=== PATIENT | female | born 1985 | race Caucasian/White ===

== ENCOUNTER 2017-11-15 18:15 | Emergency (ER) | payer MEDICAID, OTHER ==
[2017-11-15 19:15] LABS: BASOPHILS # (AUTO) 0.1 10^3/uL (0.0-0.1); BASOPHILS % (AUTO) 0.7 %; EOSINOPHILS # (AUTO) 0.2 10^3/uL (0.0-0.7); EOSINOPHILS % (AUTO) 2.2 %; HCT - HEMATOCRIT 41.6 % (37.0-47.0); HGB - HEMOGLOBIN 14.2 g/dL (12.0-16.0); LYMPHOCYTES % (AUTO) 25.7 %; MEAN CORPUSCULAR HEMOGLOBIN 28.9 pg (27.0-31.0); MEAN CORPUSCULAR HGB CONC 34.1 g/dL (32.0-36.0); MEAN CORPUSCULAR VOLUME 84.8 fL (81.0-99.0); MEAN PLATELET VOLUME 7.8 fL (7.9-10.8); MONOCYTES # (AUTO) 0.5 10^3/uL (0.0-1.0); MONOCYTES % (AUTO) 6.5 %; NEUTROPHILS # (AUTO) 4.9 10^3/uL (1.5-6.6); NEUTROPHILS % (AUTO) 64.9 %; RED BLOOD COUNT 4.91 10^6/uL (4.20-5.40); RED CELL DISTRIBUTION WIDTH 13.7 % (12.0-15.0); UNCORRECTED WHITE BLOOD COUNT 7.6 x10^3/uL; WHITE BLOOD COUNT 7.6 x10^3/uL (4.8-10.8)
[2017-11-15 19:28] LABS: ALBUMIN/GLOBULIN RATIO 1.4 (1.0-2.2); BILIRUBIN,TOTAL 0.4 mg/dL (0.2-1.0); CALCIUM 9.6 mg/dL (8.5-10.3); CREATININE 0.7 mg/dL (0.4-1.0); POTASSIUM 3.2 mmol/L (3.5-5.0); TOTAL PROTEIN 8.2 g/dL (6.7-8.2)
[2017-11-15] MEDS ORDERED: SUCRALFATE 1 GM/10 ML UDC PO STA (19:33)
[2017-11-15] MEDS ORDERED: FAMOTIDINE 20 MG TABLET PO STA (19:33)
[2017-11-15] MEDS ORDERED: LIDOCAINE VISCOUS 2% 15 ML UDC MM STA (19:33)
[2017-11-15] MEDS ORDERED: MAG HYDROX/AL HYDROX/SIMETH 30 ML UDC PO STA (19:33)
[2017-11-15] MEDS ORDERED: PHENobarb/HYOSCY/ATROPINE/SCOP 5 ML SYRINGE PO STA (19:33)
--- NOTE | 2017-11-15 19:34 | ED Physician Documentation ---
PD HPI ABD PAIN - Stated complaint Stated Complaint: ABD/BACK PX - Chief complaint Chief Complaint: Abd Pain - History obtained from History obtained from: Patient, Family - History of Present Illness Timing - onset: Today Timing - duration: Days (1) Timing - details: Gradual onset, Waxing and waning Pain level max: 8 Pain level now: 5 Quality: Aching, Pain, Other (burning) Location: Epigastric Radiation: Other (mid back) Improved by: Other (nothing) Worsened by: Eating Associated symptoms: Nausea. No: Fever, Vomiting, Hematemesis, Diarrhea, Constipation, Melena, Hematochezia, Dysuria, Hematuria Similar symptoms before: Diagnosis (states has had problems with her stomach for "years") Recently seen: Not recently seen - Additional information Additional information: denies any ibuprofen or nsaid use. States uses benadryl regularly. 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 - Present Medications Home Medications: Ambulatory Orders Medication Instructions Recorded Confirmed Hydrocodone/Acetaminophen 1 - 2 each PO Q6H PRN #14 tablet 11/15/17 [Hydrocodon-Acetaminophen 5-325] Omeprazole [PriLOSEC] 20 mg PO DAILY #30 capsule 11/15/17 Ondansetron Odt [Zofran] 4 mg TL Q6H PRN #10 tablet 11/15/17 - Allergies Allergies/Adverse Reactions: Allergies Allergy/AdvReac Type Severity Reaction Status Date / Time hydrocodone bitartrate * Allergy Emesis Verified 03/07/15 09:42 [From Vicodin] - Social History Does the pt smoke?: No Smoking Status: Never smoker Does the pt drink ETOH?: No Does the pt have substance abuse?: No - Immunizations Immunizations are current?: Yes PD ED PE NORMAL - Vitals Vital signs reviewed: Yes - General General: Alert and oriented X 3, No acute distress, Well developed/nourished - HEENT HEENT: PERRL, Moist mucous membranes - Neck Neck: Supple, no meningeal sign - Cardiac Cardiac: RRR - Respiratory Respiratory: No respiratory distress, Clear bilaterally - Abdomen Abdomen: Soft, Non distended, Other (Tender to palpation epigastric without peritoneal signs. No tenderness in the right upper quadrant. Negative Saldivar sign. Otherwise normal exam) - Back Back: No CVA TTP, No spinal TTP - Derm Derm: Warm and dry - Neuro Neuro: Alert and oriented X 3 - Psych Psych: Normal mood, Normal affect Results - Vitals Vitals: Vital Signs - 24 hr 11/15/17 11/15/17 18:24 21:22 Temperature 36.5 C Heart Rate 91 69 Respiratory 16 16 Rate Blood Pressure 126/85 H 122/83 H O2 Saturation 99 100 Oxygen O2 Source Room air - Labs Labs: Laboratory Tests 11/15/17 11/15/17 11/15/17 19:00 19:00 20:15 WBC 7.6 RBC 4.91 Hgb 14.2 Hct 41.6 MCV 84.8 MCH 28.9 MCHC 34.1 RDW 13.7 Plt Count 242 MPV 7.8 L Neut # 4.9 Lymph # 2.0 [place] # 0.5 Eos # 0.2 Baso # 0.1 Absolute Nucleated RBC 0.00 Nucleated RBC % 0.0 Sodium 138 Potassium 3.2 L Chloride 104 Carbon Dioxide 25 Anion Gap 9.0 BUN 10 Creatinine 0.7 Estimated GFR (MDRD) 98 Glucose 104 H Calcium 9.6 Total Bilirubin 0.4 AST 19 ALT 24 Alkaline Phosphatase 73 Total Protein 8.2 Albumin 4.8 Globulin 3.4 Albumin/Globulin Ratio 1.4 Lipase 22 Urine Color LT. YELLOW Urine Clarity CLEAR Urine pH 7.0 Ur Specific [place] 1.010 Urine Protein NEGATIVE Urine Glucose (UA) NEGATIVE Urine Ketones NEGATIVE Urine Occult Blood NEGATIVE Urine Nitrite NEGATIVE Urine Bilirubin NEGATIVE Urine Urobilinogen 0.2 (NORMAL) Ur Leukocyte Esterase NEGATIVE Ur Microscopic Review NOT INDICATED Urine Culture Comments NOT INDICATED Urine HCG, Qual NEGATIVE PD MEDICAL DECISION MAKING - ED course Complexity details: reviewed results, re-evaluated patient, considered differential (No peritonitis. No cholecystitis. No biliary colic. No pancreatitis, no bowel obstruction), d/w patient, d/w family ED course: Patient is a 32-year-old female who presents to the emergency department with epigastric pain, sounds consistent with gastritis versus peptic ulcer disease. Feels better after GI cocktail. Will prescribe some pain medication for her as well as antinausea medication. We will have her consume a bland diet and follow -up closely with her doctor for further evaluation and care. She is very well- appearing, nontoxic. Afebrile. Tolerating p.o. without difficulty here. Patient counseled regarding signs and symptoms for which I believe and urgent re -evaluation would be necessary. Patient with good understanding of and agreement to plan and is comfortable going home at this time This document was made in part using voice recognition software. While efforts are made to proofread this document, sound alike and grammatical errors may occur. Departure - Departure Disposition: 01 Home, Self Care Clinical Impression: Abdominal pain Qualifiers: Abdominal location: epigastric Qualified Code(s): R10.13 - Epigastric pain Condition: Good Instructions: ED Abdominal Pain Unkn Cause, ED PUD Vs Gastritis Follow-Up: your,doctor in 1 week [Other] Prescriptions: Hydrocodone/Acetaminophen [Hydrocodon-Acetaminophen 5-325] 1 - 2 each PO Q6H PRN #14 tablet PRN Reason: pain Omeprazole [PriLOSEC] 20 mg PO DAILY #30 capsule Ondansetron Odt [Zofran] 4 mg TL Q6H PRN #10 tablet PRN Reason: Nausea / Vomiting Comments: Return if you worsen. This should improve over the next few days. You should follow-up with your doctor as you would likely benefit from an endoscopy. Discharge Date/Time: 11/15/17 21:23
[2017-11-15] MEDS ORDERED: HYDROcod/ACETAM 5/325 MG TABLET PO STA (20:27)
[2017-11-15] MEDS ORDERED: ONDANSETRON ODT 4 MG TABLET TL STA (20:35)
[2017-11-15 20:36] LABS: BILIRUBIN,URINE NEGATIVE (NEGATIVE)
[2017-11-15 20:38] LABS: HCG UR QUAL NEGATIVE; UA CHARGE (STRIP ONLY) YES; UR CULTURE IF IND NOT INDICATED
[2017-11-15 21:23] VITALS: BP 122/83
== END 2017-11-15 21:23 | disposition home or self-care (01) ==
LOC: ED 18:15
DX: R10.13 Epigastric pain (principal); R11.0 Nausea
CPT/HCPCS: 36415; 80053; 81003; 81025; 83690; 85025; 99283; A9270; Q0162; 81001; 87086

== ENCOUNTER 2018-05-20 23:41 | Emergency (ER) | payer OTHER ==
[2018-05-20 23:52] VITALS: BP 137/95
--- NOTE | 2018-05-21 00:11 | ED Physician Documentation ---
PD HPI HEENT - Stated complaint Stated Complaint: DENTAL PAIN - Chief complaint Chief Complaint: Heent - History obtained from History obtained from: Patient - History of Present Illness Timing - onset: How many days ago (3) Timing - details: Gradual onset Pain level now: 8 Location: Tooth Improves: Nothing Associated symptoms: No: Fever, Facial swelling Recently seen: Not recently seen - Additional information Additional information: c/o 3 days of gradually worsening pain associated with cracked left mandibular 2nd premolar. She says she occasionally has some discomfort which she suspects is associated with food getting caught in the cracked portion of the tooth, but this is the longest she has had this pain, and it is more intense than previous. She has inadequate relief with tylenol, ibuprofen. 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 - Present Medications Home Medications: Ambulatory Orders Medication Instructions Recorded Confirmed Hydrocodone/Acetaminophen 1 - 2 each PO Q6HR PRN #14 tablet 05/21/18 [Hydrocodon-Acetaminophen 5-325] Penicillin Vk 500 mg PO Q6H 7 Days tablet 05/21/18 - Allergies Allergies/Adverse Reactions: Allergies Allergy/AdvReac Type Severity Reaction Status Date / Time No Known Drug Allergies Allergy Verified 05/21/18 00:40 - Social History Does the pt smoke?: No Smoking Status: Never smoker Does the pt drink ETOH?: No Does the pt have substance abuse?: No - Immunizations Immunizations are current?: No Immunizations: TDAP >10years/unknown - POLST Patient has POLST: No PD ED PE NORMAL - Vitals Vital signs reviewed: Yes - General General: Alert and oriented X 3, No acute distress, Well developed/nourished PD ED PE EXPANDED - HEENT HEENT: Other (small piece of left mandibular 2nd premolar is absent (the posterior-most aspect of the occlusal surface, adjacent to the 1st molar). there is no swelling, erythema, or discharge. there is mild tenderness to percussion. ) Results - Vitals Vitals: Vital Signs - 24 hr 05/20/18 23:44 Temperature 36.8 C Heart Rate 80 Respiratory 18 Rate Blood Pressure 137/95 H O2 Saturation 100 Oxygen O2 Source Room air PD MEDICAL DECISION MAKING - ED course Complexity details: considered differential, d/w patient - Sepsis Event Vital Signs: Vital Signs - 24 hr 05/20/18 23:44 Temperature 36.8 C Heart Rate 80 Respiratory 18 Rate Blood Pressure 137/95 H O2 Saturation 100 Oxygen O2 Source Room air Departure - Departure Disposition: 01 Home, Self Care Clinical Impression: Pain, dental Condition: Good Instructions: ED Tooth Pain Prescriptions: Hydrocodone/Acetaminophen [Hydrocodon-Acetaminophen 5-325] 1 - 2 each PO Q6HR PRN #14 tablet PRN Reason: Pain Penicillin Vk 500 mg PO Q6H 7 Days tablet Comments: Follow up with dentist within one week. Discharge Date/Time: 05/21/18 00:49
[2018-05-21] MEDS ORDERED: PENICILLIN VK 250 MG TABLET PO STA (00:29)
[2018-05-21] MEDS ORDERED: HYDROcod/ACET 5/325 Prepack 4 PO STA (00:33)
== END 2018-05-21 00:49 | disposition home or self-care (01) ==
LOC: ED 23:41
DX: K08.89 Other specified disorders of teeth and supporting structures (principal)
CPT/HCPCS: 99283; A9270

== ENCOUNTER 2019-01-17 15:56 | Outpatient (CLI) | payer OTHER ==
--- NOTE | 2019-01-19 13:21 | Ultrasound Report ---
Reason: LIPOMA,NECK Procedure Date: 01/17/2019 Accession Number: [id number] / [id number] Procedure: US - Head or Neck Soft Tissue CPT Code: FULL RESULT: EXAM: NECK ULTRASOUND EXAM DATE: 01/17/2019 04:51 PM. CLINICAL HISTORY: Lipoma, neck. COMPARISON: None. TECHNIQUE: Real-time sonographic imaging was performed by the lining ironer utilizing color-flow. Multiple merchandising representative static images were saved for review. FINDINGS: A palpable area along the posterior right neck was focally interrogated by grayscale and limited color Doppler ultrasound with findings of a wider than tall 1.4 x 0.3 x 1.1 cm isoechoic structure without internal vascularity by color Doppler. IMPRESSION: Nonspecific benign-appearing finding as above. Statistically most likely lipoma. RADIA
== END 2019-01-17 15:57 | disposition home or self-care (01) ==
LOC: DI 15:56
PROVIDERS: ATTEND Physician Assistant
DX: D17.0 Benign lipomatous neoplasm of skin and subcutaneous tissue of head, face and neck (principal)
CPT/HCPCS: 76536

== ENCOUNTER 2019-02-16 14:21 | Emergency (ER) | payer OTHER ==
--- NOTE | 2019-02-16 15:44 | ED Physician Documentation ---
History of Present Illness - Stated complaint Stated Complaint: CP - Chief complaint Chief Complaint: Cardiac - History obtained from History obtained from: Patient - History of Present Illness Timing: Last night - Additonal information Additional information: Patient is a previously healthy 33-year-old female presenting with substernal chest discomfort that does not radiate and is not associated with lightheadedness, dizziness, syncope, difficulty breathing, GERD-like symptoms, or other complaints that began at approximately 8 PM last night. Patient denies any particular improving or worsening factors to this pain including movement or reproducibility with palpation. Patient reports pain has been constant since it started, although dull without change in location. Patient has taken aspirin without relief. Patient also denies calf swelling or pain, recent travel, recent illness, but does have a recent sick contact in her daughter. Review of Systems Constitutional: denies: Fever Eyes: denies: Reviewed and negative Ears: denies: Reviewed and negative Throat: denies: Reviewed and negative Cardiac: reports: Chest pain / pressure. 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 - Allergies Allergies/Adverse Reactions: Allergies Allergy/AdvReac Type Severity Reaction Status Date / Time No Known Drug Allergies Allergy Verified 02/16/19 14:44 - Social History Does the pt smoke?: No Smoking Status: Never smoker Does the pt drink ETOH?: No Does the pt have substance abuse?: No - Immunizations Immunizations are current?: No Immunizations: TDAP >10years/unknown - POLST Patient has POLST: No PD ED PE NORMAL - General General: Alert and oriented X 3, No acute distress, Well developed/nourished - HEENT HEENT: Atraumatic, Moist mucous membranes - Cardiac Cardiac: RRR, No murmur, Other (No pain with palpation of sternum or ribs) - Respiratory Respiratory: No respiratory distress - Abdomen Abdomen: Normal bowel sounds, Soft, Non tender, Non distended - Derm Derm: Normal color, Warm and dry, No rash - Extremities Extremities: No deformity, No edema, No calf tenderness / cord - Neuro Neuro: No motor deficit, No sensory deficit - Psych Psych: Normal mood, Normal affect Results - Vitals Vitals: Vital Signs - 24 hr 02/16/19 02/16/19 14:40 15:44 Temperature 36.8 C 36.7 C Heart Rate 91 81 Respiratory 16 16 Rate Blood Pressure 111/78 111/77 Blood Pressure 111/77 [Right] O2 Saturation 100 100 Oxygen O2 Source Room air - EKG (time done) 1438 Rate: Rate (enter#) (79) Rhythm: NSR - Labs Labs: Laboratory Tests 02/16/19 02/16/19 02/16/19 16:02 16:02 16:02 WBC 6.0 RBC 4.54 Hgb 13.2 Hct 38.1 MCV 84.0 MCH 29.2 MCHC 34.7 RDW 13.5 Plt Count 249 MPV 7.4 L Neut # (Auto) 3.3 Lymph # (Auto) 2.0 [place] # (Auto) 0.4 Eos # (Auto) 0.2 Baso # (Auto) 0.0 Absolute Nucleated RBC 0.00 Nucleated RBC % 0.0 Sodium 134 L Potassium 3.6 Chloride 103 Carbon Dioxide 24 Anion Gap 7.0 BUN 14 Creatinine 0.7 Estimated GFR (MDRD) 98 Glucose 91 Calcium 8.9 Troponin I < 0.04 HCG, Quant 02/16/19 16:02 WBC RBC Hgb Hct MCV MCH MCHC RDW Plt Count MPV Neut # (Auto) Lymph # (Auto) [place] # (Auto) Eos # (Auto) Baso # (Auto) Absolute Nucleated RBC Nucleated RBC % Sodium Potassium Chloride Carbon Dioxide Anion Gap BUN Creatinine Estimated GFR (MDRD) Glucose Calcium Troponin I HCG, Quant < 0.60 PD MEDICAL DECISION MAKING - ED course Complexity details: reviewed old records, reviewed results, re-evaluated patient, considered differential, d/w patient ED course: Have low suspicion for true underlying cardiac disease such as ACS, myocardial infarction, unstable angina, socially given benign EKG, duration of symptoms, lack of associated symptoms, age and otherwise healthy, but will obtain troponin. Given duration of symptoms, do not feel repeat troponin will be necessary. We will also obtain chest x-ray although feel that rib injury, pneumonia, mass and other acute pathology also unlikely. Do have consideration for esophageal spasm and GERD, although patient only denies GERD-like symptoms.Do not have high suspicion for PE and patient can be ruled out by PERC criteria. Patient denies other symptoms that would raise concerns for other systemic illness. Patient received full dose aspirin, but do not feel she requires other medications at this time.Chest x-ray, as well as all lab work including troponin returned unremarkable. Again have extremely low suspicion for cardiac etiology. Also do not find evidence of other acute or concerning pathology today. Patient remains comfortable in ED. Patient does states she al ready has a primary care follow-up appointment tomorrow. Discussed other return precautions and supportive cares. Patient voices understanding and is comfortable with discharge plan. Departure - Departure Disposition: 01 Home, Self Care Clinical Impression: Chest wall pain Condition: Good Instructions: ED Chest Pain Atypical Unkn Cause Follow-Up: Yady Gallagher PA [Primary Care Provider] - Tomorrow Comments: Please continue any home medications you may use. Also recommend ibuprofen/Tylenol for discomfort. Follow-up as scheduled tomorrow with your primary care doctor and return to ED sooner if explains worsening symptoms or other concerns.
[2019-02-16] MEDS ORDERED: ASPIRIN CHEW 81 MG TABLET PO STA (15:53)
[2019-02-16] MEDS ORDERED: ASPIRIN CHEW 81 MG TABLET ONE (16:03)
[2019-02-16 16:10] LABS: BASOPHILS % (AUTO) 0.8 %; EOSINOPHILS # (AUTO) 0.2 10^3/uL (0.0-0.7); EOSINOPHILS % (AUTO) 3.7 %; HGB - HEMOGLOBIN 13.2 g/dL (12.0-16.0); LYMPHOCYTES % (AUTO) 32.5 %; MEAN CORPUSCULAR HEMOGLOBIN 29.2 pg (27.0-31.0); MEAN CORPUSCULAR HGB CONC 34.7 g/dL (32.0-36.0); MEAN PLATELET VOLUME 7.4 fL (7.9-10.8); MONOCYTES # (AUTO) 0.4 10^3/uL (0.0-1.0); MONOCYTES % (AUTO) 7.2 %; NEUTROPHILS # (AUTO) 3.3 10^3/uL (1.5-6.6); NEUTROPHILS % (AUTO) 55.8 %; PLT - PLATELET COUNT 249 10^3/uL (130-450); RED BLOOD COUNT 4.54 10^6/uL (4.20-5.40); RED CELL DISTRIBUTION WIDTH 13.5 % (12.0-15.0)
[2019-02-16 16:20] LABS: CALCIUM 8.9 mg/dL (8.5-10.3); CREATININE 0.7 mg/dL (0.4-1.0)
--- NOTE | 2019-02-16 16:39 | XRAY Report ---
Reason: cough Procedure Date: 02/16/2019 Accession Number: [id number] / [id number] Procedure: XR - Chest 2 View X-Ray CPT Code: 47007 FULL RESULT: EXAM: CHEST RADIOGRAPHY EXAM DATE: 02/16/2019 04:25 PM. CLINICAL HISTORY: COUGH. COMPARISON: 02/19/2016 9:17 PM. TECHNIQUE: 2 views. FINDINGS: Lungs/Pleura: No focal opacities evident. No pleural effusion. No pneumothorax. Normal volumes. Mediastinum: Heart and mediastinal contours are unremarkable. Other: None. IMPRESSION: Normal 2-view chest radiography. RADIA
[2019-02-16 17:37] VITALS: BP 113/78
== END 2019-02-16 17:44 | disposition home or self-care (01) ==
LOC: ED 14:21
DX: R07.89 Other chest pain (principal)
CPT/HCPCS: 36415; 71046; 80048; 84484; 84702; 85025; 93005; 99283; A9270

== ENCOUNTER 2021-09-29 22:55 | Emergency (ER) | payer SELFPAY ==
[2021-09-29 23:30] LABS: BILIRUBIN,URINE NEGATIVE (NEGATIVE); GLUCOSE, URINE (UA) NEGATIVE (NEGATIVE); KETONES,URINE (UA) NEGATIVE (NEGATIVE); LEUKOCYTE ESTERASE, URINE NEGATIVE (NEGATIVE); NITRITE,URINE NEGATIVE (NEGATIVE); OCCULT BLOOD,URINE NEGATIVE (NEGATIVE); PROTEIN,URINE NEGATIVE (NEGATIVE); UROBILINOGEN,URINE 0.2 (NORMAL) E.U./dL (NORMAL)
[2021-09-29 23:31] LABS: BASOPHILS # (AUTO) 0.1 10^3/uL (0.0-0.1); BASOPHILS % (AUTO) 0.8 %; CLARITY,URINE CLEAR (CLEAR); EOSINOPHILS # (AUTO) 0.2 10^3/uL (0.0-0.7); EOSINOPHILS % (AUTO) 2.6 %; HCT - HEMATOCRIT 38.5 % (37.0-47.0); HGB - HEMOGLOBIN 12.9 g/dL (12.0-16.0); LYMPHOCYTES # (AUTO) 1.9 10^3/uL (1.5-3.5); LYMPHOCYTES % (AUTO) 26.2 %; MEAN CORPUSCULAR HEMOGLOBIN 30.4 pg (27.0-31.0); MEAN CORPUSCULAR HGB CONC 33.5 g/dL (32.0-36.0); MEAN CORPUSCULAR VOLUME 90.8 fL (81.0-99.0); MEAN PLATELET VOLUME 9.7 fL (7.9-10.8); MONOCYTES # (AUTO) 0.5 10^3/uL (0.0-1.0); MONOCYTES % (AUTO) 6.3 %; NEUTROPHILS # (AUTO) 4.6 10^3/uL (1.5-6.6); NEUTROPHILS % (AUTO) 63.8 %; PLT - PLATELET COUNT 200 10^3/uL (130-450); RED BLOOD COUNT 4.24 10^6/uL (4.20-5.40); RED CELL DISTRIBUTION WIDTH 13.3 % (12.0-15.0); WHITE BLOOD COUNT 7.2 x10^3/uL (4.8-10.8)
[2021-09-29 23:32] LABS: HCG UR QUAL NEGATIVE
[2021-09-29 23:42] LABS: ALBUMIN 4.4 g/dL (3.2-5.5); ALBUMIN/GLOBULIN RATIO 1.4 (1.0-2.2); BILIRUBIN,TOTAL 0.4 mg/dL (0.2-1.0); CALCIUM 9.1 mg/dL (8.5-10.3); CREATININE 0.8 mg/dL (0.4-1.0); POTASSIUM 3.3 mmol/L (3.5-5.0); TOTAL PROTEIN 7.6 g/dL (6.7-8.2)
--- NOTE | 2021-09-29 23:50 | ED Physician Documentation ---
PD HPI ABD PAIN - Stated complaint Stated Complaint: ABD PX/N - Chief complaint Chief Complaint: Abd Pain - History obtained from History obtained from: Patient - History of Present Illness Timing - onset: How many days ago (10) Timing - details: Gradual onset, Waxing and waning Pain level now: 6 Quality: Pain Location: Epigastric, LLQ Improved by: Other (nothing) Worsened by: Eating Associated symptoms: Nausea. No: Fever, Vomiting, Diarrhea, Constipation, Chest pain Similar symptoms before: No diagnosis Review of Systems Constitutional: reports: Reviewed and negative Cardiac: reports: Reviewed and negative Respiratory: reports: Reviewed and negative GI: reports: Abdominal Pain, Nausea. 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 - Present Medications Home Medications: Ambulatory Orders Medication Instructions Recorded Confirmed Sertraline HCl 150 mg PO QPM 09/29/21 09/29/21 - Allergies Allergies/Adverse Reactions: Allergies Allergy/AdvReac Type Severity Reaction Status Date / Time No Known Drug Allergies Allergy Verified 09/29/21 23:02 - Social History Does the pt smoke?: Yes Smoking Status: Current every day smoker Does the pt drink ETOH?: No Does the pt have substance abuse?: No - Immunizations Immunizations are current?: No Immunizations: TDAP >10years/unknown - POLST Patient has POLST: No PD ED PE NORMAL - Vitals Vital signs reviewed: Yes - General General: Alert and oriented X 3, No acute distress, Well developed/nourished - HEENT HEENT: Moist mucous membranes - Cardiac Cardiac: RRR, No murmur, No gallop, No rub - Respiratory Respiratory: No respiratory distress, Clear bilaterally - Abdomen Abdomen: Soft, Non distended, Other (mild TTP epigastrium, mild/moderate TTP LLQ and anterior left hemipelvis; no rebound or guarding, no palpable masses) - Back Back: No CVA TTP Results - Vitals Vitals: Oxygen O2 Source Room air - Labs Labs: Laboratory Tests 09/29/21 09/29/21 09/29/21 23:25 23:25 23:25 WBC 7.2 RBC 4.24 Hgb 12.9 Hct 38.5 MCV 90.8 MCH 30.4 MCHC 33.5 RDW 13.3 Plt Count 200 MPV 9.7 Neut # (Auto) 4.6 Lymph # (Auto) 1.9 [place] # (Auto) 0.5 Eos # (Auto) 0.2 Baso # (Auto) 0.1 Absolute Nucleated RBC 0.00 Nucleated RBC % 0.0 Sodium 135 Potassium 3.3 L Chloride 103 Carbon Dioxide 21 Anion Gap 11.0 BUN 10 Creatinine 0.8 Estimated GFR (MDRD) 82 L Glucose 153 H Calcium 9.1 Total Bilirubin 0.4 AST 17 ALT 19 Alkaline Phosphatase 65 Total Protein 7.6 Albumin 4.4 Globulin 3.2 Albumin/Globulin Ratio 1.4 Lipase 42 Urine Color Urine Clarity Urine pH Ur Specific [place] Urine Protein Urine Glucose (UA) Urine Ketones Urine Occult Blood Urine Nitrite Urine Bilirubin Urine Urobilinogen Ur Leukocyte Esterase Ur Microscopic Review Urine Culture Comments Urine HCG, Qual NEGATIVE 09/29/21 23:25 WBC RBC Hgb Hct MCV MCH MCHC RDW Plt Count MPV Neut # (Auto) Lymph # (Auto) [place] # (Auto) Eos # (Auto) Baso # (Auto) Absolute Nucleated RBC Nucleated RBC % Sodium Potassium Chloride Carbon Dioxide Anion Gap BUN Creatinine Estimated GFR (MDRD) Glucose Calcium Total Bilirubin AST ALT Alkaline Phosphatase Total Protein Albumin Globulin Albumin/Globulin Ratio Lipase Urine Color YELLOW Urine Clarity CLEAR Urine pH 6.0 Ur Specific [place] 1.020 Urine Protein NEGATIVE Urine Glucose (UA) NEGATIVE Urine Ketones NEGATIVE Urine Occult Blood NEGATIVE Urine Nitrite NEGATIVE Urine Bilirubin NEGATIVE Urine Urobilinogen 0.2 (NORMAL) Ur Leukocyte Esterase NEGATIVE Ur Microscopic Review NOT INDICATED Urine Culture Comments NOT INDICATED Urine HCG, Qual - Rads (name of study) CT A/P with IV contrast Radiology: Prelim report reviewed, See rad report PD MEDICAL DECISION MAKING - ED course Complexity details: reviewed results, re-evaluated patient, considered differential, d/w patient ED course: presents c/o 10 days of abdominal pain. afebrile with unremarkable blood and urine tests. Normal WBC, minimal hypokalemia , normal UA and urine HCG negative. CT A/P with IV contrast is unremarkable ; no acute pathology, no findings to suggest etiology of her symptoms. Incidental note of intrarenal 3mm right kidney stone. results reviewed with patient, she is comfortable with d/c at this time, given usual return precautions, will follow up with primary care provider Departure - Departure Disposition: 01 Home, Self Care Clinical Impression: Abdominal pain Qualifiers: Abdominal location: epigastric Qualified Code(s): R10.13 - Epigastric pain Instructions: ED Abdominal Pain Female Non-Specific Abdominal Pain, ED Pelvic Pain [facility] Follow-Up: Denisa Rdz DO [Provider Admit Priv/Credential] - Comments: You can try an [id number] acid-blocking medication, as some of your symptoms are consistent with gastritis or a shallow peptic ulcer. You can try either nexium or prilosec, once per day for 2 weeks (follow label instructions). Discharge Date/Time: 09/30/21 02:41
[2021-09-30] MEDS ORDERED: POTASSIUM CHLORIDE 20 MEQ TABLET PO STA (00:18)
[2021-09-30] MEDS ORDERED: IOVERSOL 320 100 ML VIAL IVP ONE ×2 (00:27→00:50)
--- NOTE | 2021-09-30 01:21 | CT Report ---
PROCEDURE: Abdomen/Pelvis W INDICATIONS: abd. pain CONTRAST: IV CONTRAST: Optiray 320 ml: 100 PO CONTRAST: *NO PO CONTRAST TECHNIQUE: After the administration of intravenous contrast, 5 mm thick sections acquired from the diaphragms to the symphysis. 5 mm thick coronal and sagittal reformats were acquired. For radiation dose reducti on, the following was used: automated exposure control, adjustment of mA and/or kV according to juan ent size. COMPARISON: CT abdomen/pelvis 03/07/2015. FINDINGS: Image quality: Excellent. ABDOMEN: Lung bases: Lung bases are clear. Heart size is normal. Solid organs: Liver and spleen are normal in size and enhancement. Gallbladder is mildly contracted . Biliary system is non dilated. Pancreas enhances normally. No adrenal nodules. Kidneys demonstr ate normal size and enhancement, without hydronephrosis. A 3 mm nonobstructing calculus is seen in t he interpolar region of the right kidney. Peritoneum and bowel: Bowel loops demonstrate normal wall thickness and caliber. Normal appendix. N o free fluid or air. Nodes and vessels: No retroperitoneal or mesenteric adenopathy by size criteria. Aorta and inferior vena cava are normal in size. Miscellaneous: No ventral hernias. PELVIS: Genitourinary: Bladder wall thickness is normal. The uterus is normal in size. Enhancing left ovari an corpus luteal cyst is noted. Miscellaneous: No inguinal hernias or adenopathy. Bones: No suspicious bony lesions. No vertebral body compression fractures. IMPRESSION: 1.No acute abnormality identified in the abdomen or pelvis. Normal appendix. 2.Nonobstructing 3 mm calculus in the interpolar region of the right kidney. Reviewed by: Shahab Altamirano MD on 09/30/2021 1:20 AM PDT Approved by: Shahab Altamirano MD on 09/30/2021 1:20 AM PDT Station ID: [id number]
[2021-09-30 02:41] VITALS: BP 102/66
== END 2021-09-30 02:41 | disposition home or self-care (01) ==
LOC: ED 22:55
DX: R10.13 Epigastric pain (principal); R11.0 Nausea; E87.6 Hypokalemia; N20.0 Calculus of kidney; F17.200 Nicotine dependence, unspecified, uncomplicated
CPT/HCPCS: 36415; 74177; 80053; 81003; 81025; 83690; 85025; 99282; 99284; A9270; Q9967; 81001; 87086

== ENCOUNTER 2022-03-03 19:00 | Emergency (ER) | payer SELFPAY ==
[2022-03-03 19:11] VITALS: BP 156/86
[2022-03-03 19:23] LABS: BASOPHILS # (AUTO) 0.1 10^3/uL (0.0-0.1); BASOPHILS % (AUTO) 0.8 %; EOSINOPHILS # (AUTO) 0.3 10^3/uL (0.0-0.7); EOSINOPHILS % (AUTO) 4.3 %; HCT - HEMATOCRIT 39.1 % (37.0-47.0); HGB - HEMOGLOBIN 13.4 g/dL (12.0-16.0); LYMPHOCYTES # (AUTO) 2.1 10^3/uL (1.5-3.5); LYMPHOCYTES % (AUTO) 34.5 %; MEAN CORPUSCULAR HEMOGLOBIN 29.5 pg (27.0-31.0); MEAN CORPUSCULAR HGB CONC 34.3 g/dL (32.0-36.0); MEAN CORPUSCULAR VOLUME 85.9 fL (81.0-99.0); MEAN PLATELET VOLUME 9.3 fL (7.9-10.8); MONOCYTES # (AUTO) 0.4 10^3/uL (0.0-1.0); MONOCYTES % (AUTO) 6.9 %; NEUTROPHILS # (AUTO) 3.3 10^3/uL (1.5-6.6); NEUTROPHILS % (AUTO) 53.3 %; PLT - PLATELET COUNT 214 10^3/uL (130-450); RED BLOOD COUNT 4.55 10^6/uL (4.20-5.40); WHITE BLOOD COUNT 6.1 x10^3/uL (4.8-10.8)
--- OUTSIDE RECORDS SUMMARY | 2022-03-03 19:24 | EXTERNAL MEDICAL SUMMARY RPT | Continuity of Care Document ---
:1985 Author Organization [facility] Address [address] [place] [address] Phone Care Team Providers Name Role Phone Rosalba Wiseman Unavailable Unavailable Allergies No information. Encounters No information. Medications date description facility 20211214 Permethrin 50 MG/ML Topical Cream [facility] Problems Procedures date description facility 20211214 General Physician [facility] 20211214 Finding [facility] 20211214 Diagnosis [facility] Results No information. Vital Signs date measurement value source 20211214 temperature_standard 98 F 20211214 temperature_metric 36.67 C 20211214 respiration_rate 16 /min 20211214 heart_rate 84 /min 20211214 BP_systolic 123 mm[Hg] 20211214 BP_diastolic 86 mm[Hg]
[2022-03-03 19:37] LABS: MUDS CUTOFF CONCENTRATIONS CUTOFF CONC BELOW:
[2022-03-03 19:39] LABS: ACETAMINOPHEN < 10 ug/mL (10-30); ALBUMIN 4.7 g/dL (3.2-5.5); ALBUMIN/GLOBULIN RATIO 1.5 (1.0-2.2); ALKALINE PHOSPHATASE 59 IU/L (42-121); ALT ALANINE AMINOTRANSFERASE 31 IU/L (10-60); AST ASPARTATE AMINOTRANSFERASE 21 IU/L (10-42); BILIRUBIN,TOTAL 0.5 mg/dL (0.2-1.0); BUN - BLOOD UREA NITROGEN 15 mg/dL (6-20); CALCIUM 9.3 mg/dL (8.5-10.3); CARBON DIOXIDE - CO2 22 mmol/L (21-32); CHLORIDE 104 mmol/L (101-111); CREATININE 0.7 mg/dL (0.4-1.0); ETOH - ETHANOL < 5.0 mg/dL; GFR - MDRD 96 (>89); GLUCOSE 115 mg/dL (70-100); LIPASE 35 U/L (22-51); POTASSIUM 3.2 mmol/L (3.5-5.0); SALICYLATE < 6.0 mg/dL; SODIUM 135 mmol/L (135-145); TOTAL PROTEIN 7.8 g/dL (6.7-8.2)
[2022-03-03 19:41] LABS: BILIRUBIN,URINE NEGATIVE (NEGATIVE); GLUCOSE, URINE (UA) NEGATIVE (NEGATIVE); KETONES,URINE (UA) NEGATIVE (NEGATIVE); LEUKOCYTE ESTERASE, URINE NEGATIVE (NEGATIVE); NITRITE,URINE NEGATIVE (NEGATIVE); OCCULT BLOOD,URINE NEGATIVE (NEGATIVE); PROTEIN,URINE NEGATIVE (NEGATIVE); UROBILINOGEN,URINE 0.2 (NORMAL) E.U./dL (NORMAL)
[2022-03-03 19:46] LABS: CLARITY,URINE CLEAR (CLEAR); HCG UR QUAL NEGATIVE
[2022-03-03 19:50] LABS: AMPHETAMINE SCREEN,URINE NEGATIVE (NEGATIVE); BARBITURATE SCREEN,UR NEGATIVE (NEGATIVE); BENZODIAZEPINES SCREEN, URINE NEGATIVE (NEGATIVE); COCAINE SCREEN URINE NEGATIVE (NEGATIVE); METHADONE SCREEN, URINE NEGATIVE (NEGATIVE); METHAMPHETAMINES SCREEN, URINE NEGATIVE (NEGATIVE); OPIATE SCREEN, URINE NEGATIVE (NEGATIVE); OXYCODONE SCREEN, URINE NEGATIVE (NEGATIVE); PROPOXYPHENE SCREEN, URINE NEGATIVE (NEGATIVE); THC CANNABINOID SCREEN, URINE NEGATIVE (NEGATIVE); TRICYCLIC ANTIDEPRESSANT,URINE NEGATIVE (NEGATIVE)
--- NOTE | 2022-03-03 21:56 | ED Physician Documentation ---
PD HPI MHE - Stated complaint Stated Complaint: MHE - Chief complaint Chief Complaint: MHE - History obtained from History obtained from: Patient - History of Present Illness Primary symptom: Anxiety Timing - onset: How many weeks ago (several) Pain level max: 0 Pain level now: 0 - Additional information Additional information: Patient is a 36-year-old female who comes in to the emergency department stating that she has been under increasing stress recently. She is going through a di vorce, she has an 8-year-old daughter. Recently lost her health insurance. Has been on Zoloft for many years, 150 mg p.o. daily. She states that she is going to run out of this in a few days. She has been having episodes where she has been having increasingly forgetful. She states she does not remember doing things and is feeling more and more distracted. She is not suicidal or homicidal. She states she just feels increasingly stressed and does not know what to do. 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 : Kidney stones Psych: Depression, Anxiety - Past Surgical History Past Surgical History: Yes /VEHICLE LEASING AND RENTAL MANAGER: Other - Present Medications Home Medications: Ambulatory Orders Medication Instructions Recorded Confirmed Sertraline HCl 150 mg PO QPM 09/29/21 03/03/22 Sertraline HCl 150 mg PO QPM #45 tablet 03/03/22 hydrOXYzine pamoate [Hydroxyzine 50 mg PO TID PRN #90 cap 03/03/22 Pamoate] - Allergies Allergies/Adverse Reactions: Allergies Allergy/AdvReac Type Severity Reaction Status Date / Time No Known Drug Allergies Allergy Verified 03/03/22 19:11 - Social History Does the pt smoke?: Yes Smoking Status: Current every day smoker Does the pt drink ETOH?: No Does the pt have substance abuse?: No - Immunizations Immunizations are current?: No Immunizations: TDAP >10years/unknown - POLST Patient has POLST: No PD ED PE NORMAL - Vitals Vital signs reviewed: Yes - General General: Alert and oriented X 3, No acute distress, Well developed/nourished - HEENT HEENT: PERRL, Moist mucous membranes - Neck Neck: Supple, no meningeal sign - Cardiac Cardiac: RRR, Strong equal pulses - Respiratory Respiratory: No respiratory distress, Clear bilaterally - Abdomen Abdomen: Soft, Non tender, Non distended - Back Back: No spinal TTP - Derm Derm: Warm and dry, No rash - Extremities Extremities: No calf tenderness / cord - Neuro Neuro: Alert and oriented X 3, trench digger 2-12 intact, No motor deficit, No sensory deficit, Normal speech - Psych Psych: Normal mood, Normal affect Results - Vitals Vitals: Vital Signs - 24 hr 03/03/22 19:02 Temperature 36.8 C Heart Rate 102 H Respiratory 18 Rate Blood Pressure 156/86 H O2 Saturation 100 Oxygen O2 Source Room air - Labs Labs: Laboratory Tests 03/03/22 03/03/22 03/03/22 19:19 19:19 19:19 WBC 6.1 RBC 4.55 Hgb 13.4 Hct 39.1 MCV 85.9 MCH 29.5 MCHC 34.3 RDW 13.0 Plt Count 214 MPV 9.3 Neut # (Auto) 3.3 Lymph # (Auto) 2.1 [place] # (Auto) 0.4 Eos # (Auto) 0.3 Baso # (Auto) 0.1 Absolute Nucleated RBC 0.00 Nucleated RBC % 0.0 Sodium 135 Potassium 3.2 L Chloride 104 Carbon Dioxide 22 Anion Gap 9.0 BUN 15 Creatinine 0.7 Estimated GFR (MDRD) 96 Glucose 115 H Calcium 9.3 Total Bilirubin 0.5 AST 21 ALT 31 Alkaline Phosphatase 59 Total Protein 7.8 Albumin 4.7 Globulin 3.1 Albumin/Globulin Ratio 1.5 Lipase 35 TSH 1.13 Urine Color Urine Clarity Urine pH Ur Specific [employer] Urine Protein Urine Glucose (UA) Urine Ketones Urine Occult Blood Urine Nitrite Urine Bilirubin Urine Urobilinogen Ur Leukocyte Esterase Ur Microscopic Review Urine Culture Comments Urine HCG, Qual Salicylates < 6.0 Urine Opiates Screen Ur Oxycodone Screen Urine Methadone Screen Ur Propoxyphene Screen Acetaminophen < 10 L Ur Barbiturates Screen Ur Tricyclics Screen Ur Phencyclidine Scrn Ur Amphetamine Screen U Methamphetamines Scrn U Benzodiazepines Scrn Urine Cocaine Screen U Cannabinoids Screen Ethyl Alcohol < 5.0 03/03/22 19:30 WBC RBC Hgb Hct MCV MCH MCHC RDW Plt Count MPV Neut # (Auto) Lymph # (Auto) [place] # (Auto) Eos # (Auto) Baso # (Auto) Absolute Nucleated RBC Nucleated RBC % Sodium Potassium Chloride Carbon Dioxide Anion Gap BUN Creatinine Estimated GFR (MDRD) Glucose Calcium Total Bilirubin AST ALT Alkaline Phosphatase Total Protein Albumin Globulin Albumin/Globulin Ratio Lipase TSH Urine Color YELLOW Urine Clarity CLEAR Urine pH 6.0 Ur Specific [employer] 1.020 Urine Protein NEGATIVE Urine Glucose (UA) NEGATIVE Urine Ketones NEGATIVE Urine Occult Blood NEGATIVE Urine Nitrite NEGATIVE Urine Bilirubin NEGATIVE Urine Urobilinogen 0.2 (NORMAL) Ur Leukocyte Esterase NEGATIVE Ur Microscopic Review NOT INDICATED Urine Culture Comments NOT INDICATED Urine HCG, Qual NEGATIVE Salicylates Urine Opiates Screen NEGATIVE Ur Oxycodone Screen NEGATIVE Urine Methadone Screen NEGATIVE Ur Propoxyphene Screen NEGATIVE Acetaminophen Ur Barbiturates Screen NEGATIVE Ur Tricyclics Screen NEGATIVE Ur Phencyclidine Scrn NEGATIVE Ur Amphetamine Screen NEGATIVE U Methamphetamines Scrn NEGATIVE U Benzodiazepines Scrn NEGATIVE Urine Cocaine Screen NEGATIVE U Cannabinoids Screen NEGATIVE Ethyl Alcohol PD MEDICAL DECISION MAKING - ED course Complexity details: reviewed results, re-evaluated patient, considered differential, d/w patient, d/w compliance consultant ED course: Patient is a 36-year-old female who presents with increasing anxiety and feeling overwhelmed secondary to life stressors. She is not suicidal. Does not need a head CT or any further work-up at this time. Telepsychiatry consulted on the patient, Dr. Park, he recommends adding hydroxyzine 50 mg p.o. 3 times daily as needed for anxiety. We will refill her sertraline as well. Patient accessed discussed insurance options with the patient. Patient states that she feels safe at home and she knows that she can return at any time should she feel overwhelmed again. Patient counseled regarding signs and symptoms for which I believe and urgent re-evaluation would be necessary. Patient with good understanding of and agreement to plan and is comfortable going home at this time This document was made in part using voice recognition software. While efforts are made to proofread this document, sound alike and grammatical errors may occur. Departure - Departure Disposition: 01 Home, Self Care Clinical Impression: Anxiety Condition: Good Instructions: ED Stress React, ED Depression Follow-Up: [facility] [Provider Group] [facility] [place] [Provider Group] [facility] [place] [Provider Group] Prescriptions: hydrOXYzine pamoate [Hydroxyzine Pamoate] 50 mg PO TID PRN #90 cap PRN Reason: Anxiety Sertraline HCl 150 mg PO QPM #45 tablet Comments: Your prescriptions were sent to [facility] in [place]. I would download the good Rx shena to help with your prescription cost. Please follow-up with the primary care provider for further care. Please return if you worsen. Crisis Line and is available to talk to someone [email or web address] is also available to chat with someone online if you prefer. There are also many resources on this website and apps for your phone to help with your mental health You can also text the word START to [phone] to chat with someome via text. Forms: Activity restrictions Discharge Date/Time: 03/03/22 22:02
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
== END 2022-03-03 22:02 | disposition home or self-care (01) ==
LOC: ED 19:00
DX: Z63.5 Disruption of family by separation and divorce (principal); F41.9 Anxiety disorder, unspecified; F17.200 Nicotine dependence, unspecified, uncomplicated
CPT/HCPCS: 36415; 80053; 80306; 80307; 80320; 80329; 81003; 81025; 83690; 84443; 85025; 99283; G0425; Q3014; 81001; 87086

== ENCOUNTER 2022-03-29 16:14 | Emergency (ER) | payer OTHER ==
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
[2022-03-29 16:38] VITALS: BP 124/75
== END 2022-03-29 16:51 | disposition home or self-care (01) ==
LOC: ED 16:14
DX: S80.12XA Contusion of left lower leg, initial encounter (principal); W17.89XA Other fall from one level to another, initial encounter; Y93.H9 Activity, other involving exterior property and land maintenance, building and construction; Y99.0 Civilian activity done for income or pay; F17.200 Nicotine dependence, unspecified, uncomplicated
CPT/HCPCS: 1040M; 99281; 99282

== ENCOUNTER 2023-01-04 13:50 | Emergency (ER) | payer OTHER ==
[2023-01-04 14:03] VITALS: BP 131/80
[2023-01-04 14:31] LABS: BASOPHILS % (AUTO) 0.6 %; EOSINOPHILS # (AUTO) 0.1 10^3/uL (0.0-0.7); EOSINOPHILS % (AUTO) 2.2 %; HCT - HEMATOCRIT 40.2 % (37.0-47.0); HGB - HEMOGLOBIN 13.5 g/dL (12.0-16.0); LYMPHOCYTES # (AUTO) 1.6 10^3/uL (1.5-3.5); LYMPHOCYTES % (AUTO) 24.7 %; MEAN CORPUSCULAR HEMOGLOBIN 29.2 pg (27.0-31.0); MEAN CORPUSCULAR HGB CONC 33.6 g/dL (32.0-36.0); MEAN CORPUSCULAR VOLUME 86.8 fL (81.0-99.0); MEAN PLATELET VOLUME 9.5 fL (7.9-10.8); MONOCYTES # (AUTO) 0.5 10^3/uL (0.0-1.0); MONOCYTES % (AUTO) 7.7 %; NEUTROPHILS # (AUTO) 4.1 10^3/uL (1.5-6.6); NEUTROPHILS % (AUTO) 64.5 %; PLT - PLATELET COUNT 242 10^3/uL (130-450); RED BLOOD COUNT 4.63 10^6/uL (4.20-5.40); RED CELL DISTRIBUTION WIDTH 12.9 % (12.0-15.0); WHITE BLOOD COUNT 6.4 x10^3/uL (4.8-10.8)
[2023-01-04 14:48] LABS: ACETAMINOPHEN < 10 ug/mL (10-30); ALBUMIN 4.8 g/dL (3.2-5.5); ALBUMIN/GLOBULIN RATIO 1.5 (1.0-2.2); ALKALINE PHOSPHATASE 58 IU/L (42-121); ALT ALANINE AMINOTRANSFERASE 18 IU/L (10-60); AST ASPARTATE AMINOTRANSFERASE 13 IU/L (10-42); BILIRUBIN,TOTAL 0.7 mg/dL (0.2-1.0); BUN - BLOOD UREA NITROGEN 11 mg/dL (6-20); CALCIUM 9.5 mg/dL (8.5-10.3); CARBON DIOXIDE - CO2 23 mmol/L (21-32); CHLORIDE 105 mmol/L (101-111); CREATININE 0.9 mg/dL (0.4-1.0); ETOH - ETHANOL < 5.0 mg/dL; GFR - MDRD 71 (>89); GLUCOSE 96 mg/dL (70-100); LIPASE 32 U/L (22-51); POTASSIUM 3.8 mmol/L (3.5-5.0); SALICYLATE < 6.0 mg/dL; SODIUM 137 mmol/L (135-145); TOTAL PROTEIN 8.1 g/dL (6.7-8.2)
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
[2023-01-04] MEDS ORDERED: NAPROXEN 250 MG TABLET PO STA (15:23)
[2023-01-04] MEDS ORDERED: ACETAMINOPHEN 325 MG TABLET PO STA (15:23)
== END 2023-01-04 16:48 | disposition home or self-care (01) ==
LOC: ED 13:50
DX: R07.89 Other chest pain (principal); F41.9 Anxiety disorder, unspecified; F17.200 Nicotine dependence, unspecified, uncomplicated; Z63.0 Problems in relationship with spouse or partner
CPT/HCPCS: 36415; 80053; 80307; 80320; 80329; 83690; 83880; 84443; 84484; 85025; 93005; 99283; 99284; A9270

== ENCOUNTER 2023-02-14 11:43 | Emergency (ER) | payer OTHER ==
--- NOTE | 2023-02-14 12:16 | XRAY Report ---
PROCEDURE: Chest 2 View X-Ray INDICATIONS: productive cough TECHNIQUE: 2 views of the chest were acquired. COMPARISON: None. FINDINGS: Surgical changes and devices: None. Lungs and pleura: No pleural effusions or pneumothorax. Lungs are clear. Mediastinum: Mediastinal contours are normal. Heart size is normal. Bones and chest wall: No suspicious bony abnormalities. Soft tissues appear unremarkable. IMPRESSION: No acute cardiopulmonary process. Reviewed by: Jack Montalvo on 02/14/2023 12:15 PM PDT Approved by: Jack Montalvo on 02/14/2023 12:15 PM PDT Station ID: [id number]
[2023-02-14 13:22] LABS: B. PARAPERTUSSIS- RESP PCR PAN NOT DETECTED; B. PERTUSSIS- RESP PCR PANEL NOT DETECTED; C. PNEUMONIAE- RESP PCR PANEL NOT DETECTED; CORONAVIRUS 229E-RESP PCR NOT DETECTED; CORONAVIRUS HKU1-RESP PCR NOT DETECTED; CORONAVIRUS NL63-RESP PCR NOT DETECTED; CORONAVIRUS OC43-RESP PCR NOT DETECTED; HUMAN METAPNEUMOVIRUS DETECTED; INFLUENZA A- RESP PCR PANEL NOT DETECTED; INFLUENZA B - RESP PCR PANEL NOT DETECTED; M. PNEUMONIAE- RESP PCR PANEL NOT DETECTED; PARAINFLUENZA VIRUS 1 NOT DETECTED; PARAINFLUENZA VIRUS 2 NOT DETECTED; PARAINFLUENZA VIRUS 3 NOT DETECTED; PARAINFLUENZA VIRUS 4 NOT DETECTED; RHINOVIRUS/ENTEROVIRUS NOT DETECTED; RSV- RESP PCR PANEL NOT DETECTED; SARS-CoV-2 -RESP PCR PANEL NOT DETECTED
--- NOTE | 2023-02-14 13:32 | ED Physician Documentation ---
PD HPI URI - Stated complaint Stated Complaint: SOA/COUGHING - Chief complaint Chief Complaint: Resp - History obtained from History obtained from: Patient - History of Present Illness Timing - onset: How many days ago (10) Timing duration: Days (had uRI symptoms start about 10 days ago with congestion, sore throat, some cough. Generally feeling improved but now has 2-3 days of increasing cough with now purulent sputum and flare of her underlying asthma.) Timing details: Gradual onset Associated symptoms: Fever (initially, not the past few days), Chills Contributing factors: COPD / asthma (uses her albuterol MDI only infrequently with illness or allergen exposures.). No: Sick contact Improves by: MDI/nebulizer (briefly) Worsened by: Activity Similar symptoms before: Diagnosis (had ashtma flares when gets URIs. Has had URIs lead to bronchitis like symptoms previously.) Recently seen: Not recently seen Review of Systems Constitutional: reports: Chills, Myalgias Nose: reports: Rhinorrhea / runny nose, Congestion Respiratory: reports: Dyspnea, Cough, Wheezing GI: denies: Vomiting, Diarrhea PD PAST MEDICAL HISTORY - Past Medical History Cardiovascular: None Respiratory: Asthma Neuro: None WHISKEY PROOF READER: None : Kidney stones Psych: Depression, Anxiety - Past Surgical History Past Surgical History: Yes /WHISKEY PROOF READER: Other - Present Medications Home Medications: Ambulatory Orders Medication Instructions Recorded Confirmed Sertraline HCl 150 mg PO QPM 09/29/21 03/03/22 Sertraline HCl 150 mg PO QPM #45 tablet 03/03/22 hydrOXYzine pamoate [Hydroxyzine 50 mg PO TID PRN #90 cap 03/03/22 Pamoate] Meloxicam [Mobic] 7.5 mg PO BID 10 Days #20 tablet 01/04/23 Sertraline HCl 100 mg PO DAILY #30 tablet 01/04/23 traZODone [Desyrel] 50 mg PO HS PRN #20 tablet 01/04/23 Amox/Clav 875/125 [Augmentin] 1 each PO BID #10 tablet 02/14/23 Benzonatate [Tessalon] 100 mg PO TID PRN #20 cap 02/14/23 dexAMETHasone [Decadron] 4 mg PO DAILY #7 tablet 02/14/23 - Allergies Allergies/Adverse Reactions: Allergies Allergy/AdvReac Type Severity Reaction Status Date / Time No Known Drug Allergies Allergy Verified 02/14/23 11:54 - Social History Does the pt smoke?: Yes Smoking Status: Current every day smoker Does the pt drink ETOH?: No Does the pt have substance abuse?: No - Immunizations Immunizations are current?: No Immunizations: TDAP >10years/unknown - POLST Patient has POLST: No PD ED PE NORMAL - Vitals Vital signs reviewed: Yes - General General: Alert and oriented X 3, No acute distress, Well developed/nourished - HEENT HEENT: Ears normal, Moist mucous membranes, Pharynx benign - Neck Neck: Supple, no meningeal sign, No adenopathy - Cardiac Cardiac: RRR, No murmur - Respiratory Respiratory: No respiratory distress. No: Clear bilaterally (sone central exp wheezing and congested sounds, noted more with cough. ) - Abdomen Abdomen: Soft, Non tender - Extremities Extremities: No edema, No calf tenderness / cord Results - Vitals Vitals: Vital Signs - 24 hr 02/14/23 02/14/23 02/14/23 11:50 13:35 14:37 Temperature 36.7 C Heart Rate 83 86 90 Respiratory 20 16 16 Rate Blood Pressure 120/79 114/82 H O2 Saturation 100 97 02/14/23 14:41 Temperature Heart Rate 92 Respiratory 16 Rate Blood Pressure 114/82 H O2 Saturation 100 Oxygen O2 Source Room air - Labs Labs: Laboratory Tests 02/14/23 11:56 Nasal Adenovirus (PCR) NOT DETECTED Nasal B. parapertussis DNA (PCR) NOT DETECTED Nasal Coronavir 229E PCR NOT DETECTED Nasal Coronavir HKU1 PCR NOT DETECTED Nasal Coronavir NL63 PCR NOT DETECTED Nasal Coronavir OC43 PCR NOT DETECTED Nasal Enterovir/Rhinovir PCR NOT DETECTED Nasal Influenza B PCR NOT DETECTED Nasal Influenza A PCR NOT DETECTED Nasal Parainfluen 1 PCR NOT DETECTED Nasal Parainfluen 2 PCR NOT DETECTED Nasal Parainfluen 3 PCR NOT DETECTED Nasal Parainfluen 4 PCR NOT DETECTED Nasal RSV (PCR) NOT DETECTED Nasal B.pertussis DNA PCR NOT DETECTED Nasal C.pneumoniae (PCR) NOT DETECTED Louie Human Metapneumo PCR DETECTED A Nasal M.pneumoniae (PCR) NOT DETECTED Nasal SARS-CoV-2 (PCR) NOT DETECTED - Rads (name of study) chest xray Relevant Findings:: Prelim report reviewed, EMP independent interpretation of test (no pneumonia), See rad report PD Medical Decision Making - ED course Complexity details: considered differential (has had URI symptoms for 10 days with now increased cough with now purulent sputum and increased asthma wheezing. Consider likely secondary bacterial infection. Has viral metapneumovirus as initial illness but can have bacterial superimposed to it. ), d/w patient Reviewed Lab Results: r human metapneumovirus. chest xray without pneumonia. Departure - Departure Disposition: Home, Self Care Clinical Impression: Recent URI Acute bronchitis Qualifiers: Bronchitis organism: unspecified organism Qualified Code(s): J20.9 - Acute bronchitis, unspecified Exacerbation of asthma Qualifiers: Asthma severity: mild Asthma persistence: intermittent Qualified Code(s): J45.21 - Mild intermittent asthma with (acute) exacerbation Condition: Stable Record reviewed to determine appropriate education?: Yes Instructions: ED Upper Resp Infec Abx Tx Prescriptions: Amox/Clav 875/125 [Augmentin] 1 each PO BID #10 tablet dexAMETHasone [Decadron] 4 mg PO DAILY #7 tablet Benzonatate [Tessalon] 100 mg PO TID PRN #20 cap PRN Reason: Cough Comments: Given the time course and worsening of your bronchial symptoms, it does sound likely to have been a viral illness now compounded with a bronchitis that might be bacterial. Your respiratory panel test was positive for a virus called human [place] nephro virus. This is essentially a chest cold and typically lasts 5 to 7 days like most other chest colds. However your worsening symptoms suggest may bacterial bronchitis on top of that. We will have you continue with your albuterol inhaler 2 to 3 puffs 4 times daily and extra times if needed. At benzonatate/Tessalon if needed for cough. Stay well-hydrated. Also add dexamethasone steroid daily for 5 more days to help with bronchial inflammation. In consideration of possible bacterial component, I would also add Augmentin twice daily for 5 days. These prescriptions were sent to [facility]. Recheck if not improving well over the next few days and return if worse. Discharge Date/Time: 02/14/23 14:43
[2023-02-14 13:37] VITALS: BP 114/82
[2023-02-14] MEDS ORDERED: AMOX/CLAV 875 MG/125 MG TABLET PO STA (14:14)
[2023-02-14] MEDS ORDERED: BENZONATATE 100 MG CAPSULE PO STA (14:14)
[2023-02-14] MEDS ORDERED: ALBUTEROL 1 PUFF INH STA (14:14)
[2023-02-14] MEDS ORDERED: CHERRY SYRUP 10 ML UDC PO ONE (14:14)
[2023-02-14] MEDS ORDERED: DEXAMETHASONE 10 MG/ML VIAL PO STA (14:14)
== END 2023-02-14 14:43 | disposition home or self-care (01) ==
LOC: ED 11:43
DX: J06.9 Acute upper respiratory infection, unspecified (principal); B97.81 Human metapneumovirus as the cause of diseases classified elsewhere; J20.9 Acute bronchitis, unspecified; J45.21 Mild intermittent asthma with (acute) exacerbation; F17.200 Nicotine dependence, unspecified, uncomplicated; Z20.822 Contact with and (suspected) exposure to COVID-19
CPT/HCPCS: 71046; 87633; 94640; 94664; 99284; A9270

== ENCOUNTER 2023-05-08 20:42 | Emergency (ER) | payer OTHER ==
[2023-05-08] MEDS ORDERED: KETAMINE IV STA (21:43)
[2023-05-08] MEDS ORDERED: SODIUM CHLORIDE 0.9% IV STA (21:43)
--- NOTE | 2023-05-08 21:45 | ED Physician Documentation ---
"PD HPI MHE - Stated complaint Stated Complaint: SI - Chief complaint Chief Complaint: MHE - History obtained from History obtained from: Patient - Additional information Additional information: 38-year-old woman with chronic depression presents with vague suicidal ideation, occasional thoughts of overdose. No history of suicide attempts. No access to firearms. She is newly in counseling. Not currently under medical management for depression but has been on both Cymbalta and Zoloft in the past. PD PAST MEDICAL HISTORY - Past Medical History Cardiovascular: None Respiratory: Asthma Neuro: None STEPDOWN NURSE: None : Kidney stones Psych: Depression, Anxiety - Past Surgical History Past Surgical History: Yes /STEPDOWN NURSE: Other - Present Medications Home Medications: Ambulatory Orders Medication Instructions Recorded Confirmed Sertraline HCl 150 mg PO QPM 09/29/21 03/03/22 Sertraline HCl 150 mg PO QPM #45 tablet 03/03/22 hydrOXYzine pamoate [Hydroxyzine 50 mg PO TID PRN #90 cap 03/03/22 Pamoate] Meloxicam [Mobic] 7.5 mg PO BID 10 Days #20 tablet 01/04/23 Sertraline HCl 100 mg PO DAILY #30 tablet 01/04/23 traZODone [Desyrel] 50 mg PO HS PRN #20 tablet 01/04/23 Amox/Clav 875/125 [Augmentin] 1 each PO BID #10 tablet 02/14/23 Benzonatate [Tessalon] 100 mg PO TID PRN #20 cap 02/14/23 dexAMETHasone [Decadron] 4 mg PO DAILY #7 tablet 02/14/23 - Allergies Allergies/Adverse Reactions: Allergies Allergy/AdvReac Type Severity Reaction Status Date / Time No Known Drug Allergies Allergy Verified 02/14/23 11:54 - Social History Does the pt smoke?: Yes Smoking Status: Current every day smoker Does the pt drink ETOH?: No Does the pt have substance abuse?: No - Immunizations Immunizations are current?: No Immunizations: TDAP >10years/unknown - POLST Patient has POLST: No PD ED PE NORMAL - Vitals Vital signs reviewed: Yes - General General: Alert and oriented X 3, Other (Occasionally tearful but alert and cooperative) - HEENT HEENT: PERRL, EOMI - Neck Neck: Supple, no meningeal sign, No bony TTP - Neuro Neuro: Alert and oriented X 3, Normal speech - Psych Psych: Other (Depressed mood) Results - Vitals Vitals: Vital Signs - 24 hr 05/08/23 05/08/23 05/09/23 21:00 22:03 05:42 Temperature 36.5 C Heart Rate 87 91 83 Respiratory 16 25 H 21 Rate Blood Pressure 123/84 H 117/79 101/67 O2 Saturation 100 97 97 Oxygen O2 Source Room air - Labs Labs: Laboratory Tests 05/08/23 05/08/23 05/08/23 21:51 21:51 21:51 WBC 7.2 RBC 4.22 Hgb 12.4 Hct 36.4 L MCV 86.3 MCH 29.4 MCHC 34.1 RDW 13.1 Plt Count 241 MPV 9.3 Neut # (Auto) 4.4 Lymph # (Auto) 2.1 [place] # (Auto) 0.5 Eos # (Auto) 0.1 Baso # (Auto) 0.0 Absolute Nucleated RBC 0.00 Nucleated RBC % 0.0 Sodium 139 Potassium 3.3 L Chloride 108 Carbon Dioxide 27 Anion Gap 4.0 L BUN 9 Creatinine 0.9 Estimated GFR (MDRD) 71 L Glucose 131 H Calcium 8.9 Magnesium 2.1 Total Bilirubin 0.5 AST 17 ALT 20 Alkaline Phosphatase 54 Total Creatine Kinase 41 Total Protein 7.1 Albumin 4.0 Globulin 3.1 Albumin/Globulin Ratio 1.3 Lipase 31 TSH 2.15 Salicylates < 6.0 Acetaminophen < 10 L Ethyl Alcohol < 5.0 PD Medical Decision Making - ED course ED course: 38-year-old woman with exacerbation of chronic depression with SI and fleeting plans of overdose. We discussed options including telepsychiatry consultation, admission or a trial of ketamine infusion she opts for the latter. 45 mg of ketamine over 40 minutes was ordered. Care to overnight emergency physician pending completion of ketamine drip and reevaluation with disposition pending potential improvement after that. Departure - Departure Disposition: 01 Home, Self Care Clinical Impression: Depression Condition: Stable Record reviewed to determine appropriate education?: Yes Instructions: ED Depression Comments: You were seen in the ED for depressed mood. Return to the emergency department if you active plan to kill yourself, do things or see things that you think are real, or feel unsafe in any way. Please follow-up with your primary care provider for referral to psychiatry and mental health counseling. 988 Suicide and Crisis Lifeline [facility] | [facility] [email or web address] [facility] provides comprehensive [facility] health services across [address] Psychiatrist [facility] [address] [place] [address], [place] WANDA LEES Psychiatrist [address] [place] [id number] Discharge Date/Time: 05/09/23 06:01"
[2023-05-08 21:56] LABS: BASOPHILS % (AUTO) 0.6 %; EOSINOPHILS # (AUTO) 0.1 10^3/uL (0.0-0.7); EOSINOPHILS % (AUTO) 1.9 %; HCT - HEMATOCRIT 36.4 % (37.0-47.0); HGB - HEMOGLOBIN 12.4 g/dL (12.0-16.0); LYMPHOCYTES # (AUTO) 2.1 10^3/uL (1.5-3.5); LYMPHOCYTES % (AUTO) 28.9 %; MEAN CORPUSCULAR HEMOGLOBIN 29.4 pg (27.0-31.0); MEAN CORPUSCULAR HGB CONC 34.1 g/dL (32.0-36.0); MEAN CORPUSCULAR VOLUME 86.3 fL (81.0-99.0); MEAN PLATELET VOLUME 9.3 fL (7.9-10.8); MONOCYTES # (AUTO) 0.5 10^3/uL (0.0-1.0); MONOCYTES % (AUTO) 6.8 %; NEUTROPHILS # (AUTO) 4.4 10^3/uL (1.5-6.6); NEUTROPHILS % (AUTO) 61.5 %; PLT - PLATELET COUNT 241 10^3/uL (130-450); RED BLOOD COUNT 4.22 10^6/uL (4.20-5.40); RED CELL DISTRIBUTION WIDTH 13.1 % (12.0-15.0); WHITE BLOOD COUNT 7.2 x10^3/uL (4.8-10.8)
[2023-05-08 22:11] LABS: ACETAMINOPHEN < 10 ug/mL (10-30); ALBUMIN/GLOBULIN RATIO 1.3 (1.0-2.2); ALKALINE PHOSPHATASE 54 IU/L (42-121); ALT ALANINE AMINOTRANSFERASE 20 IU/L (10-60); AST ASPARTATE AMINOTRANSFERASE 17 IU/L (10-42); BILIRUBIN,TOTAL 0.5 mg/dL (0.2-1.0); BUN - BLOOD UREA NITROGEN 9 mg/dL (6-20); CALCIUM 8.9 mg/dL (8.5-10.3); CARBON DIOXIDE - CO2 27 mmol/L (21-32); CHLORIDE 108 mmol/L (101-111); CK- CREATINE KINASE 41 IU/L (22-269); CREATININE 0.9 mg/dL (0.4-1.0); ETOH - ETHANOL < 5.0 mg/dL; GFR - MDRD 71 (>89); GLUCOSE 131 mg/dL (70-100); LIPASE 31 U/L (22-51); MAGNESIUM 2.1 mg/dL (1.7-2.8); POTASSIUM 3.3 mmol/L (3.5-5.0); SALICYLATE < 6.0 mg/dL; SODIUM 139 mmol/L (135-145); TOTAL PROTEIN 7.1 g/dL (6.7-8.2)
[2023-05-08] MEDS ORDERED: KETAMINE 500 MG/10 ML VIAL ONE (22:46)
--- NOTE | 2023-05-09 03:59 | ED Physician Documentation ---
ED Addendum - Addendum Addendum: 05/09/23 03:57 Patient still feeling depressed s/p ketamine. denies active SI. She is leaning toward going home rather than telepsychiatry or inpatient psychiatric care. Since she is recovering from ketamine infusion we will have her rest here until she is safe to drive in the morning. 05/09/23 05:41 Patient now requesting to go home. ambulatory to bathroom without difficulty. denies active SI/HI/AVH and contracts for safety. Disposition home Impression 1. depression Condition stable
[2023-05-09 05:46] VITALS: BP 101/67
== END 2023-05-09 06:01 | disposition home or self-care (01) ==
LOC: ED 20:42
DX: F32.A Depression, unspecified (principal); F17.200 Nicotine dependence, unspecified, uncomplicated
CPT/HCPCS: 36415; 80053; 80307; 80320; 80329; 82550; 83690; 83735; 84443; 85025; 96365; 99283

== ENCOUNTER 2024-03-11 14:15 | Outpatient (CLI) | payer OTHER ==
[2024-03-11 23:12] LABS: CHLAMYDIA TRACHOMATIS DNA NEGATIVE (NEGATIVE); NEISSERIA GONORRHOEAE DNA NEGATIVE (NEGATIVE)
[2024-03-12 00:52] LABS: BACTERIAL VAGINOSIS DNA POSITIVE (NEGATIVE); CANDIDA KRUSEI DNA NEGATIVE (NEGATIVE)
[2024-03-12 00:53] LABS: CANDIDA GLABRATA DNA NEGATIVE (NEGATIVE); CANDIDA GROUP DNA NEGATIVE (NEGATIVE); TRICHOMONAS VAGINALIS DNA POSITIVE (NEGATIVE)
== END 2024-03-11 14:30 | disposition home or self-care (01) ==
LOC: LAB.N 14:15
PROVIDERS: ATTEND Physician Assistant
DX: N89.8 Other specified noninflammatory disorders of vagina (principal)
CPT/HCPCS: 81514; 87491; 87591; 87661

== ENCOUNTER 2024-06-03 16:29 | Emergency (ER) | payer OTHER ==
[2024-06-03 17:07] LABS: BASOPHILS % (AUTO) 0.4 %; EOSINOPHILS # (AUTO) 0.1 10^3/uL (0.0-0.7); EOSINOPHILS % (AUTO) 0.7 %; HCT - HEMATOCRIT 39.4 % (37.0-47.0); HGB - HEMOGLOBIN 13.2 g/dL (12.0-16.0); LYMPHOCYTES % (AUTO) 9.6 %; MEAN CORPUSCULAR HEMOGLOBIN 29.5 pg (27.0-31.0); MEAN CORPUSCULAR HGB CONC 33.5 g/dL (32.0-36.0); MEAN CORPUSCULAR VOLUME 88.1 fL (81.0-99.0); MEAN PLATELET VOLUME 9.9 fL (7.9-10.8); MONOCYTES # (AUTO) 0.4 10^3/uL (0.0-1.0); MONOCYTES % (AUTO) 3.3 %; NEUTROPHILS % (AUTO) 85.5 %; PLT - PLATELET COUNT 264 10^3/uL (130-450); RED BLOOD COUNT 4.47 10^6/uL (4.20-5.40); RED CELL DISTRIBUTION WIDTH 13.2 % (12.0-15.0); WHITE BLOOD COUNT 10.6 x10^3/uL (4.8-10.8)
--- NOTE | 2024-06-03 17:10 | ED Physician Documentation ---
History of Present Illness - Stated complaint Stated Complaint: R SIDE PX/VOMIT - Chief complaint Chief Complaint: Abd Pain - History obtained from History obtained from: Patient - Additonal information Additional information: 39-year-old female presents to the emergency department with right-sided abdominal pain. She states this been ongoing for the past 4 to 5 days. She states it got better over the last 2 days and then became worse again today. Has not taken anything for the pain at home. States has a history of kidney stones approximately 5 years ago and this feels similar. No urinary symptoms. No dysuria, urinary frequency. No fevers. No chills. No cough or congestion. No diarrhea or constipation. No blood in the urine. Has never had to have a kidney stone removed. Review of Systems Constitutional: denies: Fever, Chills Respiratory: denies: Cough GI: denies: Vomiting, Diarrhea : denies: Dysuria, Frequency, Hesitancy, Hematuria, Discharge, Now EGA Skin: denies: Rash Musculoskeletal: denies: Neck pain, Back pain Neurologic: denies: Headache PD PAST MEDICAL HISTORY - Past Medical History Past Medical History: Yes Cardiovascular: None Respiratory: Asthma Neuro: None MEDICAL APPOINTMENT SCHEDULER: None : Kidney stones Psych: Depression, Anxiety - Past Surgical History Past Surgical History: Yes /MEDICAL APPOINTMENT SCHEDULER: Other - Present Medications Home Medications: Ambulatory Orders Medication Instructions Recorded Confirmed Ibuprofen [Motrin] 800 mg PO Q8H PRN #30 tablet 06/03/24 Ondansetron Odt [Zofran] 4 mg TL Q6H PRN #10 tablet 06/03/24 Oxycodone HCl/Acetaminophen 1 - 2 each PO Q6H PRN #14 tablet 06/03/24 [Percocet 5-325 mg Tablet] MDD 6 tabs - Allergies Allergies/Adverse Reactions: Allergies Allergy/AdvReac Type Severity Reaction Status Date / Time No Known Drug Allergies Allergy Verified 06/03/24 16:56 - Social History Does the pt smoke?: Yes Smoking Status: Current every day smoker Does the pt drink ETOH?: No Does the pt have substance abuse?: No - Immunizations Immunizations are current?: No Immunizations: TDAP >10years/unknown - POLST Patient has POLST: No PD ED PE NORMAL - Vitals Vital signs reviewed: Yes - General General: Alert and oriented X 3, Other (Appears uncomfortable, kneeling on the bed) - HEENT HEENT: Moist mucous membranes, Pharynx benign - Neck Neck: Supple, no meningeal sign - Cardiac Cardiac: RRR, Strong equal pulses - Respiratory Respiratory: No respiratory distress, Clear bilaterally - Abdomen Abdomen: Soft, Non distended, Other (Mild tenderness to palpation over the right side of the abdomen. No peritoneal signs.) - Back Back: No CVA TTP, No spinal TTP - Derm Derm: Warm and dry - Neuro Neuro: Alert and oriented X 3 - Psych Psych: Normal mood, Normal affect Results - Vitals Vitals: Vital Signs - 24 hr 06/03/24 06/03/24 06/03/24 16:52 19:15 19:36 Temperature 35.8 C L 36.4 C L Heart Rate 80 79 82 Respiratory 20 16 18 Rate Blood Pressure 109/69 119/93 H 121/77 O2 Saturation 100 97 98 06/03/24 06/03/24 20:14 20:55 Temperature 36.4 C L Heart Rate 75 75 Respiratory 16 16 Rate Blood Pressure 112/73 129/68 O2 Saturation 98 100 Oxygen O2 Source Room air - Labs Labs: Laboratory Tests 06/03/24 06/03/24 06/03/24 17:00 17:00 17:00 WBC 10.6 RBC 4.47 Hgb 13.2 Hct 39.4 MCV 88.1 MCH 29.5 MCHC 33.5 RDW 13.2 Plt Count 264 MPV 9.9 Neut # (Auto) 9.0 H Lymph # (Auto) 1.0 L [place] # (Auto) 0.4 Eos # (Auto) 0.1 Baso # (Auto) 0.0 Absolute Nucleated RBC 0.00 Nucleated RBC % 0.0 Sodium 140 Potassium 3.6 Chloride 107 Carbon Dioxide 21 Anion Gap 12.0 BUN 12 Creatinine 1.1 Estimated GFR (MDRD) 56 L Glucose 166 H Calcium 10.4 H Total Bilirubin 0.7 AST 11 ALT 14 Alkaline Phosphatase 57 Total Protein 7.5 Albumin 4.7 Globulin 2.8 Albumin/Globulin Ratio 1.7 Lipase 19 Serum HCG, Qual NEGATIVE Urine Color Urine Clarity Urine pH Ur Specific [place] Urine Protein Urine Glucose (UA) Urine Ketones Urine Occult Blood Urine Nitrite Urine Bilirubin Urine Urobilinogen Ur Leukocyte Esterase Urine RBC Urine WBC Ur Squamous Epith Cells Urine Bacteria Urine Mucus Ur Microscopic Review Urine Culture Comments Urine HCG, Qual 06/03/24 19:36 WBC RBC Hgb Hct MCV MCH MCHC RDW Plt Count MPV Neut # (Auto) Lymph # (Auto) [place] # (Auto) Eos # (Auto) Baso # (Auto) Absolute Nucleated RBC Nucleated RBC % Sodium Potassium Chloride Carbon Dioxide Anion Gap BUN Creatinine Estimated GFR (MDRD) Glucose Calcium Total Bilirubin AST ALT Alkaline Phosphatase Total Protein Albumin Globulin Albumin/Globulin Ratio Lipase Serum HCG, Qual Urine Color STRAW Urine Clarity CLEAR Urine pH 6.5 Ur Specific [place] <=1.005 Urine Protein NEGATIVE Urine Glucose (UA) NEGATIVE Urine Ketones 40 H Urine Occult Blood SMALL H Urine Nitrite NEGATIVE Urine Bilirubin NEGATIVE Urine Urobilinogen 0.2 (NORMAL) Ur Leukocyte Esterase NEGATIVE Urine RBC 0-5 Urine WBC 0-3 Ur Squamous Epith Cells FEW Squamous Urine Bacteria None Seen Urine Mucus Moderate Strands Ur Microscopic Review INDICATED Urine Culture Comments NOT INDICATED Urine HCG, Qual NEGATIVE - Rads (name of study) CT abdomen pelvis Relevant Findings:: Final report received, See rad report PD Medical Decision Making - ED course Complexity details: reviewed results, re-evaluated patient, considered differential, d/w patient, d/w family ED course: 39-year-old female with a right-sided ureteral stone, 4 mm. At the UVJ. Pain well-controlled with IV Toradol, Dilaudid, lidocaine. No evidence of UTI. No evidence of pyelonephritis. We will place on pain medication for home. Encourage p.o. hydration. Will have her follow-up with her PCP for further care. Patient is well-appearing, nontoxic. Return precautions given. Patient counseled regarding signs and symptoms for which I believe and urgent re- evaluation would be necessary. Patient with good understanding of and agreement to plan and is comfortable going home at this time This document was made in part using voice recognition software. While efforts are made to proofread this document, sound alike and grammatical errors may occur. Departure - Departure Disposition: 01 Home, Self Care Clinical Impression: Ureteral calculus, right Condition: Good Instructions: ED Stone Renal W Colic Follow-Up: your,doctor in 1 week [Other] Prescriptions: Ibuprofen [Motrin] 800 mg PO Q8H PRN #30 tablet PRN Reason: PAIN &/OR FEVER Oxycodone HCl/Acetaminophen [Percocet 5-325 mg Tablet] 1 - 2 each PO Q6H PRN #14 tablet MDD 6 tabs PRN Reason: pain Ondansetron Odt [Zofran] 4 mg TL Q6H PRN #10 tablet PRN Reason: Nausea / Vomiting Comments: You have a 4 mm right-sided ureteral stone. This should pass on its own. Please make sure you are drinking plenty of water. Please follow-up with your doctor for further care. Return if you worsen, especially uncontrolled pain, fevers, vomiting or other new or worrisome symptoms. Your prescriptions was sent to [facility] in [place]. I am prescribing a short course of narcotic pain medication for you. These are potentially dangerous and addictive medications that should be used carefully. These medications may constipate you. Take an [id number] stool softener (docusate) twice daily with plenty of water while taking these medications. If you go 24 hours without a bowel movement, take [id number] miralax, per package instructions. Do not drink or drive while taking these medications. If you received narcotic or sedating medications while in the emergency department, do not drive for 24 hours. Store this medication in a safe, secure place and out of reach of children. It is a violation of federal law to give or sell this medication to another person or to use in a manner other than prescribed. The ED will not refill narcotic prescriptions, including prescriptions lost or stolen. To dispose of unwanted medications: 1. [facility] [address] [facility] in [place] has a medication drop box. They accept prescription medications (in pill form) Friday through Friday 9:00 a.m. to 5:00 p.m. 2. [facility] [employer] accepts prescription medications (in pill form only) for disposal year round. Call for more information. 3. Contact the [facility] for the next [facility] sponsored prescription drug collection event. , [phone], or [phone]; EXAM: [id number] CT/ABPEW ([id number]) PROCEDURE: Abdomen/Pelvis W INDICATIONS: R sided abd pain CONTRAST: 100ml [id number] TECHNIQUE: After the administration of intravenous contrast, a CT scan of the abdomen and pelvis was performed. Images were recorded and evaluated at appropriate window settings. Reformats: coronal and sagittal. For radiation dose reduction, the following was used: automated exposure control, adjustment of mA and/or kV according to patient size. COMPARISON: 09/30/2021 FINDINGS: Image quality: Diagnostic. Lower chest: Unremarkable. Liver: No solid mass. Mild diffuse hepatic steatosis.. Gallbladder: No radiopaque stones or wall thickening. Biliary tree: No intrahepatic or extrahepatic dilation, accounting for age. Spleen: No splenomegaly. Pancreas: No pancreatic ductal dilation. Adrenals: No adrenal nodule. Kidneys and ureters: A 4 mm stone obstructs the distal right ureter at the level of the ureterovesical junction. Reference image 20 series 2. This results in moderate right hydronephrosis and hydroureter. There is a delayed right nephrogram. There is a 3 mm nonobstructing right renal stone. There is a 3 mm nonobstructing left renal stone. No left hydronephrosis. Left ureter is unremarkable. Stomach, bowel and peritoneum: No gastric or small bowel dilation. No abnormal wall thickening. No pathologic free fluid. Lymph nodes: No central or retroperitoneal adenopathy. Vessels: No infrarenal aortic aneurysm. Patent portal vein. PELVIS Reproductive organs: Unremarkable. Bladder: No abnormal wall thickening, accounting for underdistention. Pelvic lymph nodes: No pelvic adenopathy by size criteria. Bones: No aggressive osseous abnormality. Other: No significant ventral or inguinal hernia. IMPRESSION: 1. Obstructing 4 mm calculus at the level of the right ureterovesical junction results in a delayed right nephrogram and moderate right hydronephrosis and hydroureter. 2. Bilateral small nonobstructing renal stones. 3. Mild diffuse hepatic steatosis. Forms: PCP List Discharge Date/Time: 06/03/24 21:02
[2024-06-03] MEDS: HYDROmorphone 1 MG/ML CARPUJECT IVP STA ×2 (17:19→19:49)
[2024-06-03] MEDS: ONDANSETRON 4 MG/2 ML VIAL IVP STA (17:19)
[2024-06-03] MEDS: KETOROLAC 30 MG/ML VIAL IVP STA (17:19)
[2024-06-03] MEDS: SODIUM CHLORIDE 0.9% 1,000 ML IV STA (17:20)
[2024-06-03 17:25] LABS: ALBUMIN 4.7 g/dL (3.2-5.5); ALBUMIN/GLOBULIN RATIO 1.7 (1.0-2.2); BILIRUBIN,TOTAL 0.7 mg/dL (0.2-1.0); CALCIUM 10.4 mg/dL (8.5-10.3); CREATININE 1.1 mg/dL (0.6-1.3); POTASSIUM 3.6 mmol/L (3.5-4.5); TOTAL PROTEIN 7.5 g/dL (6.4-8.9)
[2024-06-03] MEDS ORDERED: iohexoL-300 100 ML VIAL ONE (17:37)
[2024-06-03 18:59] LABS: HCG,QUALITATIVE BLOOD NEGATIVE
[2024-06-03] MEDS: iohexoL-300 100 ML VIAL IVP ONE (19:32)
[2024-06-03] MEDS ORDERED: LIDOCAINE-MPF 2% 5 ML VIAL ONE (19:42)
--- NOTE | 2024-06-03 19:42 | CT Report ---
PROCEDURE: Abdomen/Pelvis W INDICATIONS: R sided abd pain CONTRAST: 100ml [id number] TECHNIQUE: After the administration of intravenous contrast, a CT scan of the abdomen and pelvis was performed. Images were recorded and evaluated at appropriate window settings. Reformats: coronal and sagittal. F or radiation dose reduction, the following was used: automated exposure control, adjustment of mA and /or kV according to patient size. COMPARISON: 09/30/2021 FINDINGS: Image quality: Diagnostic. Lower chest: Unremarkable. Liver: No solid mass. Mild diffuse hepatic steatosis.. Gallbladder: No radiopaque stones or wall thickening. Biliary tree: No intrahepatic or extrahepatic dilation, accounting for age. Spleen: No splenomegaly. Pancreas: No pancreatic ductal dilation. Adrenals: No adrenal nodule. Kidneys and ureters: A 4 mm stone obstructs the distal right ureter at the level of the ureterovesica l junction. Reference image 20 series 2. This results in moderate right hydronephrosis and hydrourete r. There is a delayed right nephrogram. There is a 3 mm nonobstructing right renal stone. There is a 3 mm nonobstructing left renal stone. No left hydronephrosis. Left ureter is unremarkable. Stomach, bowel and peritoneum: No gastric or small bowel dilation. No abnormal wall thickening. No pa thologic free fluid. Lymph nodes: No central or retroperitoneal adenopathy. Vessels: No infrarenal aortic aneurysm. Patent portal vein. PELVIS Reproductive organs: Unremarkable. Bladder: No abnormal wall thickening, accounting for underdistention. Pelvic lymph nodes: No pelvic adenopathy by size criteria. Bones: No aggressive osseous abnormality. Other: No significant ventral or inguinal hernia. IMPRESSION: 1. Obstructing 4 mm calculus at the level of the right ureterovesical junction results in a delayed r ight nephrogram and moderate right hydronephrosis and hydroureter. 2. Bilateral small nonobstructing renal stones. 3. Mild diffuse hepatic steatosis. Reviewed by: Alex Bobby MD on 06/03/2024 7:41 PM PDT Approved by: Alex Bobby MD on 06/03/2024 7:41 PM PDT Station ID: [id number]
[2024-06-03 19:45] LABS: BILIRUBIN,URINE NEGATIVE (NEGATIVE); GLUCOSE, URINE (UA) NEGATIVE (NEGATIVE); KETONES,URINE (UA) 40 mg/dL (NEGATIVE); LEUKOCYTE ESTERASE, URINE NEGATIVE (NEGATIVE); NITRITE,URINE NEGATIVE (NEGATIVE); OCCULT BLOOD,URINE SMALL (NEGATIVE); PH,URINE 6.5 PH (5.0-7.5); PROTEIN,URINE NEGATIVE (NEGATIVE); UROBILINOGEN,URINE 0.2 (NORMAL) E.U./dL (NORMAL)
[2024-06-03] MEDS: SODIUM CHLORIDE 0.9% IV STA (19:45)
[2024-06-03] MEDS: ONDANSETRON ODT 4 MG TABLET TL STA (19:45)
[2024-06-03] MEDS: LIDOCAINE MPF 2% IV STA (19:45)
[2024-06-03 19:47] LABS: CLARITY,URINE CLEAR (CLEAR); HCG UR QUAL NEGATIVE
[2024-06-03 19:58] LABS: BACTERIA,URINE None Seen /HPF (None Seen); MUCUS,URINE Moderate Strands; RBC,URINE 0-5 /HPF (0-5); SQUAMOUS EPITHELIAL CELL,UR FEW Squamous (<= Few); WBC,URINE 0-3 /HPF (0-5)
[2024-06-03] MEDS ORDERED: ONDANSETRON ODT 4 MG Prepack 2 TL PRN (20:41)
[2024-06-03] MEDS: oxyCODONE/ACET 5/325 Prepack 4 PO STA (20:53)
[2024-06-03 21:01] VITALS: BP 129/68; O2SAT 100
== END 2024-06-03 21:02 | disposition home or self-care (01) ==
LOC: ED 16:29
DX: N13.2 Hydronephrosis with renal and ureteral calculous obstruction (principal); Z87.442 Personal history of urinary calculi; F17.200 Nicotine dependence, unspecified, uncomplicated
CPT/HCPCS: 36415; 74177; 80053; 81001; 81025; 83690; 84703; 85025; 96374; 96375; 96376; 99283; 99284; A9270; J1170; J7040; Q0162; Q9967; 81003; 87086

== ENCOUNTER 2024-07-19 13:06 | Emergency (ER) | payer OTHER ==
[2024-07-19 13:29] VITALS: O2SAT 100
--- NOTE | 2024-07-19 14:01 | XRAY Report ---
PROCEDURE: Chest 1V INDICATIONS: soa, covid + TECHNIQUE: One view of the chest was acquired. COMPARISON: 02/14/2023 FINDINGS: Surgical changes and devices: None. Lungs and pleura: No pleural effusions or pneumothorax. Lungs are clear. Mediastinum: Mediastinal contours appear normal. Heart size is normal. Bones and chest wall: No suspicious bony lesions. Overlying soft tissues appear unremarkable. IMPRESSION: No acute cardiopulmonary process. Reviewed by: Jack Montalvo MD on 07/19/2024 1:59 PM PDT Approved by: Jack Montalvo MD on 07/19/2024 1:59 PM PDT Station ID: [id number]
--- NOTE | 2024-07-19 16:00 | ED Physician Documentation ---
PD HPI URI - Stated complaint Stated Complaint: C+,SOA,CONGESTION - Chief complaint Chief Complaint: Resp - History obtained from History obtained from: Patient - History of Present Illness Timing - onset: How many weeks ago (2) Timing duration: Weeks (2) Pain level max: 0 Pain level now: 0 Associated symptoms: Dry cough Contributing factors: Sick contact Improves by: Rest Worsened by: Activity - Additional information Additional information: Patient is a 39-year-old female has had a cough and congestion for the past 2 weeks. Took a COVID test was positive. She states that she is just not getting better symptoms decided to come in and be seen today. No fevers. No chills. Denies any possibility of . Does not take any medications regularly at home. No history of asthma or respiratory disease. Review of Systems Constitutional: denies: Fever, Chills GI: denies: Vomiting, Diarrhea Skin: denies: Rash Musculoskeletal: denies: Neck pain, Back pain Neurologic: denies: Headache PD PAST MEDICAL HISTORY - Past Medical History Cardiovascular: None Respiratory: Asthma Neuro: None [employer]: None : Kidney stones Psych: Depression, Anxiety - Past Surgical History Past Surgical History: Yes /[employer]: Other - Present Medications Home Medications: Ambulatory Orders Medication Instructions Recorded Confirmed Ibuprofen [Motrin] 800 mg PO Q8H PRN #30 tablet 06/03/24 Ondansetron Odt [Zofran] 4 mg TL Q6H PRN #10 tablet 06/03/24 Oxycodone HCl/Acetaminophen 1 - 2 each PO Q6H PRN #14 tablet 06/03/24 [Percocet 5-325 mg Tablet] MDD 6 tabs - Allergies Allergies/Adverse Reactions: Allergies Allergy/AdvReac Type Severity Reaction Status Date / Time No Known Drug Allergies Allergy Verified 07/19/24 13:27 - Social History Does the pt smoke?: Yes Smoking Status: Current every day smoker Does the pt drink ETOH?: No Does the pt have substance abuse?: No - Immunizations Immunizations are current?: No Immunizations: TDAP >10years/unknown - POLST Patient has POLST: No PD ED PE NORMAL - Vitals Vital signs reviewed: Yes - General General: Alert and oriented X 3, No acute distress - HEENT HEENT: PERRL, Moist mucous membranes - Neck Neck: Supple, no meningeal sign - Cardiac Cardiac: RRR, Strong equal pulses - Respiratory Respiratory: No respiratory distress, Clear bilaterally - Abdomen Abdomen: Soft, Non tender, Non distended - Derm Derm: Warm and dry - Neuro Neuro: Alert and oriented X 3 - Psych Psych: Normal mood, Normal affect Results - Vitals Vitals: Vital Signs - 24 hr 07/19/24 13:22 Temperature 37.5 C Heart Rate 81 Respiratory 20 Rate Blood Pressure 109/74 O2 Saturation 100 Oxygen O2 Source Room air - Rads (name of study) cxr Relevant Findings:: Final report received, See rad report PD Medical Decision Making - ED course Complexity details: reviewed results, considered differential, d/w patient ED course: Patient is well-appearing, nontoxic. Afebrile. No hypoxia. No respiratory d istress. O2 sat is 100% on room air. Chest x-ray does not show any evidence of pneumonia. She is out of the window for antiviral medication. We will continue supportive care and have her follow-up with her doctor for further care. Patient counseled regarding signs and symptoms for which I believe and urgent re-evaluation would be necessary. Patient with good understanding of and agreement to plan and is comfortable going home at this time This document was made in part using voice recognition software. While efforts are made to proofread this document, sound alike and grammatical errors may occur. Departure - Departure Disposition: 01 Home, Self Care Clinical Impression: COVID-19 Condition: Good Instructions: ED Viral Syndrome Follow-Up: your,doctor as needed [Other] Comments: Your chest x-ray does not show any acute abnormalities today. Please continue cough medication as needed at home. Please return if you worsen. Updated Guidance: The updated Respiratory Virus Guidance recommends that people stay home and away from others until at least 24 hours after both their symptoms are getting better overall, and they have not had a fever (and are not using fever-reducing medication). Note that depending on the length of symptoms, this period could be shorter, the same, or longer than the previous guidance for COVID-19. It is important to note that the guidance doesn't end with staying home and away from others when sick. The guidance encourages added precaution over the next five days after time at home, away from others, is over. Since some people remain contagious beyond the "[id number]" period, a period of added precaution using prevention strategies, such as: Taking more steps for poultry cleaner air; Enhancing hygiene practices; Wearing a well-fitting mask; Keeping a distance from others; and/or Getting tested for respiratory viruses can lower the chance of spreading respiratory viruses to others. Forms: PCP List
[2024-07-19 16:14] VITALS: BP 110/72
== END 2024-07-19 16:05 | disposition home or self-care (01) ==
LOC: ED 13:06
DX: U07.1 COVID-19 (principal); F17.200 Nicotine dependence, unspecified, uncomplicated
CPT/HCPCS: 99283